=== PATIENT | female | born 1995 | race Two or more races ===

== ENCOUNTER 2020-10-31 08:00 | Outpatient (CLI) | payer OTHER ==
[2020-10-31 15:28] LABS: MUDS CUTOFF CONCENTRATIONS CUTOFF CONC BELOW:
[2020-10-31 16:10] LABS: BILIRUBIN,URINE NEGATIVE (NEGATIVE); GLUCOSE, URINE (UA) NEGATIVE (NEGATIVE); KETONES,URINE (UA) NEGATIVE (NEGATIVE); LEUKOCYTE ESTERASE, URINE TRACE (NEGATIVE); NITRITE,URINE NEGATIVE (NEGATIVE); OCCULT BLOOD,URINE TRACE-LYSE (NEGATIVE); PROTEIN,URINE NEGATIVE (NEGATIVE); UROBILINOGEN,URINE 0.2 (NORMAL) E.U./dL (NORMAL)
[2020-10-31 16:11] LABS: CLARITY,URINE HAZY (CLEAR)
[2020-10-31 16:19] LABS: BACTERIA,URINE Few /HPF (None Seen); RBC,URINE 0-5 /HPF (0-5); SQUAMOUS EPITHELIAL CELL,UR MANY Squamous (<= Few)
[2020-10-31 16:21] LABS: AMPHETAMINE SCREEN,URINE NEGATIVE (NEGATIVE); BARBITURATE SCREEN,UR NEGATIVE (NEGATIVE); BENZODIAZEPINES SCREEN, URINE NEGATIVE (NEGATIVE); COCAINE SCREEN URINE NEGATIVE (NEGATIVE); METHADONE SCREEN, URINE NEGATIVE (NEGATIVE); METHAMPHETAMINES SCREEN, URINE NEGATIVE (NEGATIVE); OPIATE SCREEN, URINE NEGATIVE (NEGATIVE); OXYCODONE SCREEN, URINE NEGATIVE (NEGATIVE); PROPOXYPHENE SCREEN, URINE NEGATIVE (NEGATIVE); THC CANNABINOID SCREEN, URINE NEGATIVE (NEGATIVE); TRICYCLIC ANTIDEPRESSANT,URINE NEGATIVE (NEGATIVE)
== END 2020-10-31 23:59 | disposition home or self-care (01) ==
LOC: LAB.WC 08:00
PROVIDERS: ATTEND Nurse Practitioner Obstetrics & Gynecology
DX: Z32.01 Encounter for pregnancy test, result positive (principal)
CPT/HCPCS: 80306; 81001; 87086

== ENCOUNTER 2020-11-15 15:48 | Outpatient (CLI) | payer OTHER ==
--- NOTE | 2020-11-15 22:16 | Ultrasound Report ---
PROCEDURE: OB First Trimester INDICATIONS: +PREG TEST OUTSIDE/PRIOR DATING DATA: Last menstrual period (LMP): 08/20/2020. LMP-based estimated date of delivery (DALE): 05/27/2021. First dating scan (date and location): 11/15/2020. Estimated date of delivery (DALE) from first dating scan: 05/25/2021. The below data below was generated using the ultrasound generated DALE of 05/25/2021 TECHNIQUE: Real-time scanning was performed of the fetus and maternal pelvic organs, with image documentation. COMPARISON: None. FINDINGS: Embryo: There is a gestational sac in the uterine fundus measuring 6 mm in mean sac diameter. Fetus within the gestational sac measures 6.4 cm in crown-rump length. Small subchorionic hemorrhage adjace nt to the gestational sac on the right measuring 2.7 cm in maximum dimension. Measurement variability in dating: +/- 4 weeks by LMP, +/- 7 days by mean sac diameter (use before 6 weeks gestation if crown-rump length not able to be measured), +/- 5 days by crown-rump length (6-12 weeks gestation). Maternal organs: Ovaries both normal in appearance. Right corpus luteum cyst measuring 1.8 cm.. IMPRESSION: Single live intrauterine gestation with average ultrasound age of 12 weeks 5 days. Small subchorionic hemorrhage on the right of the gestational sac measuring 2.7 cm. Reviewed by: Dragan Atkins MD on 11/15/2020 10:14 PM PDT Approved by: Dragan Atkins MD on 11/15/2020 10:14 PM PDT Station ID: [id number]
== END 2020-11-15 15:49 | disposition home or self-care (01) ==
LOC: DI 15:48
PROVIDERS: ATTEND Nurse Practitioner Obstetrics & Gynecology
DX: O20.8 Other hemorrhage in early pregnancy (principal); Z3A.12 12 weeks gestation of pregnancy

== ENCOUNTER 2020-11-22 08:00 | Outpatient (CLI) | payer OTHER ==
[2020-11-22 22:02] LABS: CHLAMYDIA TRACHOMATIS DNA NEGATIVE (NEGATIVE); NEISSERIA GONORRHOEAE DNA NEGATIVE (NEGATIVE); TRICHOMONAS VAGINALIS DNA NEGATIVE (NEGATIVE)
== END 2020-11-22 23:59 | disposition home or self-care (01) ==
LOC: LAB.WC 08:00
PROVIDERS: ATTEND Nurse Practitioner Obstetrics & Gynecology
DX: Z11.3 Encounter for screening for infections with a predominantly sexual mode of transmission (principal)
CPT/HCPCS: 87491; 87591; 87661

== ENCOUNTER 2020-11-22 12:09 | Outpatient (CLI) | payer OTHER ==
[2020-11-22 12:39] LABS: BASOPHILS % (AUTO) 0.3 %; EOSINOPHILS % (AUTO) 0.3 %; HCT - HEMATOCRIT 37.9 % (37.0-47.0); HGB - HEMOGLOBIN 12.2 g/dL (12.0-16.0); LYMPHOCYTES # (AUTO) 2.2 10^3/uL (1.5-3.5); LYMPHOCYTES % (AUTO) 21.7 %; MEAN CORPUSCULAR HGB CONC 32.2 g/dL (32.0-36.0); MEAN CORPUSCULAR VOLUME 86.9 fL (81.0-99.0); MEAN PLATELET VOLUME 9.1 fL (7.9-10.8); MONOCYTES # (AUTO) 0.8 10^3/uL (0.0-1.0); MONOCYTES % (AUTO) 7.5 %; NEUTROPHILS % (AUTO) 69.8 %; PLT - PLATELET COUNT 415 10^3/uL (130-450); RED BLOOD COUNT 4.36 10^6/uL (4.20-5.40)
[2020-11-23 12:56] LABS: HEPATITIS B SURFACE ANTIGEN NON-REACTIVE (NON-REACTIVE); HEPATITIS C ANTIBODY NON-REACTIVE (NON-REACTIVE)
[2020-11-23 14:02] LABS: HIV AG/AB 4TH GEN NON-REACTIVE (NON-REACTIVE)
== END 2020-11-22 12:10 | disposition home or self-care (01) ==
LOC: LAB 12:09
PROVIDERS: ATTEND Nurse Practitioner Obstetrics & Gynecology
DX: Z36.89 Encounter for other specified antenatal screening (principal); Z11.3 Encounter for screening for infections with a predominantly sexual mode of transmission
CPT/HCPCS: 36415; 85025; 86592; 86762; 86787; 86803; 86850; 86900; 86901; 87340; 87389; 87491; 87591; 87661

== ENCOUNTER 2021-01-08 14:35 | Outpatient (CLI) | payer OTHER ==
--- NOTE | 2021-01-08 17:28 | Ultrasound Report ---
PROCEDURE: OB Detailed Eval INDICATIONS: SUPERVISION OF NORMAL OUTSIDE/PRIOR DATING DATA: Last menstrual period (LMP): 08/20/2020. LMP-based estimated date of delivery (DALE): 05/27/2021. First dating scan (date and location): 11/15/2020. Estimated date of delivery (DALE) from first dating scan: 05/25/2021. The below data below was generated using the computer-generated DALE of 05/25/2021 TECHNIQUE: Real-time scanning was performed of the fetus, with image documentation and biometric measurements. COMPARISON: 11/15/2020. FINDINGS: General: A single living intrauterine gestation is present. Presentation: Breech Placenta: Placental position is fundal posterior, without previa. Amniotic fluid index: 13.4 cm, normal for gestational age. heart rate: 162 beats per minute. Maternal cervical canal: 4.8 cm long and is closed; normal length is 2.5 cm or more. biometrics: Biparietal diameter: 4.7 cm, 20 weeks, 1 day Head circumference: 17.8 cm, 20 weeks, 2 days Abdominal circumference: 14.8 cm, 20 weeks, 1 day Femur length: 3.08 cm, 19 weeks, 4 days Estimated gestational age from initial scan: 20 weeks, 3 days. Composite gestational age from present scan: 19 weeks, 4 days Estimated weight and percentile: 20.8 g, 20.2%. Measurement variability in biometric dating: +/- 10 days from 12-20 weeks gestation, +/- 2 weeks from 20-30 weeks gestation, +/- 3 weeks at 30 weeks gestation or later. Anatomic survey: Neuro: Ventricles are normal at less than 10 mm. Cisterna magna is normal at 3-11 mm. Cerebellum i s normal in size and morphology. Nuchal skin fold: Normal at less than 6 mm between 14 and 20 weeks gestational age. Face: Nose and lips, facial profile are moderately well seen due to position. Spine: No evidence for spina bifida. Heart: 4-chambered heart is present, with normal ventricular outflow tracts. Diaphragm: Diaphragm is intact. Stomach: Left-sided stomach is present. Kidneys: No hydronephrosis. Normal is less than 5 mm in 2nd trimester, less than 7 mm in 3rd trimester. Cord: 3 vessel cord has orthotopic insertion. Bladder: Normal in size. Extremities: All 4 extremities are visualized. IMPRESSION: 1. Single live intrauterine with fetus in breech presentation. No placenta previa. he art rate is 162 bpm. 2. Estimated weight is at 20.2 percentile. Normal amount of amniotic fluid with HARVINDER measures 13 .4 cm. Largest pocket is 4.5 cm. 3. Facial profile is not well visualized due to position. Rest of the anatomic survey is normal. Reviewed by: Bright Dick MD on 01/08/2021 5:27 PM PDT Approved by: Bright Dick MD on 01/08/2021 5:27 PM PDT Station ID: [id number]
== END 2021-01-08 14:36 | disposition home or self-care (01) ==
LOC: DI 14:35
PROVIDERS: ATTEND Nurse Practitioner Obstetrics & Gynecology
DX: O32.1XX0 Maternal care for breech presentation, not applicable or unspecified (principal); Z3A.20 20 weeks gestation of pregnancy; Z36.8A Encounter for antenatal screening for other genetic defects
CPT/HCPCS: 36415; 81511

== ENCOUNTER 2021-01-08 14:40 | Outpatient (CLI) | payer OTHER ==
[2021-01-09 14:40] LABS: AFP MOM 0.96; AGE RISK DOWN SYNDROME 1 IN 1056; CALC'D GESTATIONAL AGE 20.1 weeks; CIGARETTE SMOKER? NOT GIVEN; DONOR AGE: EGG RETRIEVAL NOT GIVEN; DONOR EGG NO; ESTRIOL MOM 1.09; HCG MOM 0.88; HX OF NEURAL TUBE DEFECTS NO; INHIBIN A MOM 0.78; INSULIN DEPEND DIABETIC NO; MATERNAL WEIGHT 152 lbs; MSS DOWN SYNDROME RISK <1 IN 5000; MSS3 TRISOMY 18 RISK <1 IN 5000; NUMBER OF FETUSES 1; PREV PREGNANCY DOWN SYND NO; RISK FOR ONTD 1 IN 3698
== END 2021-01-08 14:41 | disposition home or self-care (01) ==
LOC: LAB 14:40
PROVIDERS: ATTEND Nurse Practitioner Obstetrics & Gynecology
DX: Z36.8A Encounter for antenatal screening for other genetic defects (principal)
CPT/HCPCS: 36415; 81511

== ENCOUNTER 2021-01-17 15:20 | Outpatient (CLI) | payer OTHER ==
--- NOTE | 2021-01-18 09:16 | Ultrasound Report ---
PROCEDURE: OB F/U or Repeat INDICATIONS: SUPERVISION OF NORMAL OUTSIDE/PRIOR DATING DATA: Last menstrual period (LMP): 08/20/2020. LMP-based estimated date of delivery (DALE): 05/27/2021. First dating scan (date and location): 11/15/2020. Estimated date of delivery (DALE) from first dating scan: 05/25/2021. The below data below was generated using the ultrasound DALE of 05/25/2021 TECHNIQUE: Real-time scanning was performed of the fetus, with image documentation. COMPARISON: 12/19/2020, 06/17/2020 FINDINGS: General: A single live intrauterine gestation is present. Presentation: Cephalic Placenta: Placental position is fundal posterior, without previa. Amniotic fluid index: 15.5 cm, within normal limits for gestational age. heart rate: 143 beats per minute. Maternal cervical canal: 5 cm long; normal length is 2.5 cm or more. Other: The facial profile is within normal limits. IMPRESSION: No significant abnormality is seen, with a normal-appearing facial profile. Reviewed by: Hari Walls MD on 01/18/2021 8:14 AM [place] Approved by: Hari Walls MD on 01/18/2021 8:14 AM [place] Station ID: [id number]
== END 2021-01-17 15:21 | disposition home or self-care (01) ==
LOC: DI 15:20
PROVIDERS: ATTEND Nurse Practitioner Obstetrics & Gynecology
DX: Z34.00 Encounter for supervision of normal first pregnancy, unspecified trimester (principal); Z36.89 Encounter for other specified antenatal screening

== ENCOUNTER 2021-03-03 10:14 | Outpatient (CLI) | payer OTHER ==
[2021-03-03 12:03] LABS: HCT - HEMATOCRIT 33.9 % (37.0-47.0); HGB - HEMOGLOBIN 10.7 g/dL (12.0-16.0); MEAN CORPUSCULAR HEMOGLOBIN 28.4 pg (27.0-31.0); MEAN CORPUSCULAR HGB CONC 31.6 g/dL (32.0-36.0); MEAN CORPUSCULAR VOLUME 89.9 fL (81.0-99.0); MEAN PLATELET VOLUME 9.8 fL (7.9-10.8); RED BLOOD COUNT 3.77 10^6/uL (4.20-5.40); RED CELL DISTRIBUTION WIDTH 14.8 % (12.0-15.0)
== END 2021-03-03 23:59 | disposition home or self-care (01) ==
LOC: LAB.WCP 10:14
PROVIDERS: ATTEND Nurse Practitioner Obstetrics & Gynecology
DX: Z34.90 Encounter for supervision of normal pregnancy, unspecified, unspecified trimester (principal); Z36.89 Encounter for other specified antenatal screening
CPT/HCPCS: 36415; 82950; 85027

== ENCOUNTER 2021-04-16 10:23 | Outpatient (CLI) | payer OTHER ==
[2021-04-16 10:40] VITALS: BP 122/83
--- NOTE | 2021-04-16 11:01 | PROVIDER PROGRESS NOTE ---
Progress Note Patient is a 26year-old -0-0-1 at 34 weeks 1 day gestation presenting to triage for 4 days of feeling unwell. She had some blurred vision and headaches, took some Tylenol yesterday that helped her symptoms. Then this morning woke up had 1 episode of diarrhea, one episode of vomiting bile. She tried eating some cereal, but threw this up on the way to the hospital. No other sick family members. No fever or chills. She has good movement, no leaking, no vaginal bleeding. She has no scotoma. Denies right upper quadrant pain or unrelenting headaches. Her biggest concern is some back of the head discomfort and some lightheadedness, and this makes her feel somewhat detached from her head. Past medical history Denies pertinent history Past surgical history No prior surgeries Family history Mother: Hypertension Social history Denies tobacco, alcohol, drugs Physical exam Physical Temp Pulse Resp BP Pulse Ox 98.4 F 104 H 20 122/83 H 99 04/16/21 10:36 04/16/21 10:36 04/16/21 10:36 04/16/21 10:36 04/16/21 10:36 Constitutional: alert, no acute distress, well hydrated, well developed, well nourished, appropriate dress. Skin: normal turgor, normal color. Head: atraumatic, normocephalic. Cardiovascular: RRR. Respiratory: no respiratory distress. Abdomen: nondistended, nontender. Spine: normal mobility. Neurologic: normal, sensation intact, motor intact. Psych: affect and mood appropriate, normal interaction, good eye contact. FHT: 145 bpm baseline, moderate variability, accelerations present, no decelerations. Gwynn: Quiescent Assessment and plan 26-year-old -0-0-1 at 34 weeks 1 day gestation with likely gastroenteritis. 1. 34 weeks gestation -Reactive NST today. 2. Gastroenteritis -New onset GI symptoms, and this is likely self resolving. Most of her symptoms do seem related to this. Very unlikely to be preeclampsia given a normal blood pressure, lack of concerning symptoms. Can take loperamide if diarrhea becomes a problem. Will discharge with ondansetron for nausea and vomiting. Can likely go some time with only small meals. Discussed importance of remaining hydrated with small frequent sips. Tolerated two glasses of water in triage. Discharged in stable condition. 3. Headache -improved with acetaminophen
[2021-04-16 11:07] LABS: BASOPHILS % (AUTO) 0.3 %; EOSINOPHILS % (AUTO) 0.3 %; HCT - HEMATOCRIT 34.9 % (37.0-47.0); HGB - HEMOGLOBIN 11.3 g/dL (12.0-16.0); LYMPHOCYTES # (AUTO) 1.5 10^3/uL (1.5-3.5); LYMPHOCYTES % (AUTO) 16.7 %; MEAN CORPUSCULAR HEMOGLOBIN 29.1 pg (27.0-31.0); MEAN CORPUSCULAR HGB CONC 32.4 g/dL (32.0-36.0); MEAN CORPUSCULAR VOLUME 89.9 fL (81.0-99.0); MEAN PLATELET VOLUME 9.4 fL (7.9-10.8); MONOCYTES # (AUTO) 0.5 10^3/uL (0.0-1.0); MONOCYTES % (AUTO) 5.8 %; NEUTROPHILS # (AUTO) 6.7 10^3/uL (1.5-6.6); NEUTROPHILS % (AUTO) 76.4 %; PLT - PLATELET COUNT 350 10^3/uL (130-450); RED BLOOD COUNT 3.88 10^6/uL (4.20-5.40); RED CELL DISTRIBUTION WIDTH 14.6 % (12.0-15.0); WHITE BLOOD COUNT 8.8 x10^3/uL (4.8-10.8)
[2021-04-16 11:18] LABS: BILIRUBIN,URINE NEGATIVE (NEGATIVE); GLUCOSE, URINE (UA) NEGATIVE (NEGATIVE); KETONES,URINE (UA) NEGATIVE (NEGATIVE); LEUKOCYTE ESTERASE, URINE LARGE (NEGATIVE); NITRITE,URINE NEGATIVE (NEGATIVE); OCCULT BLOOD,URINE NEGATIVE (NEGATIVE); PH,URINE 7.5 PH (5.0-7.5); PROTEIN,URINE NEGATIVE (NEGATIVE); UROBILINOGEN,URINE 0.2 (NORMAL) E.U./dL (NORMAL)
[2021-04-16 11:22] LABS: CLARITY,URINE SL. CLOUDY (CLEAR)
[2021-04-16 11:30] LABS: BACTERIA,URINE Few /HPF (None Seen); RBC,URINE 0-5 /HPF (0-5); SQUAMOUS EPITHELIAL CELL,UR MANY Squamous (<= Few)
[2021-04-16] MEDS ORDERED: ONDANSETRON ODT 4 MG TABLET TL PRN (11:57)
[2021-04-16] MEDS ORDERED: ACETAMINOPHEN 500 MG TABLET PO ONE (12:00)
== END 2021-04-16 12:12 | disposition home or self-care (01) ==
LOC: WFO 10:23 → FBP 10:24 → WFO 12:12
PROVIDERS: ATTEND Obstetrics & Gynecology
DX: O98.813 Other maternal infectious and parasitic diseases complicating pregnancy, third trimester (principal); K52.9 Noninfective gastroenteritis and colitis, unspecified; O99.891 Other specified diseases and conditions complicating pregnancy; R51.9 Headache, unspecified; Z3A.34 34 weeks gestation of pregnancy
CPT/HCPCS: 36415; 81001; 85025; 99213; A9270; Q0162; 81003; 87086; 99214

== ENCOUNTER 2021-05-06 11:15 | Outpatient (CLI) | payer OTHER | END 2021-05-06 23:59 | disposition home or self-care (01) | LOC: LAB 11:15 | PROVIDERS: ATTEND Nurse Practitioner Obstetrics & Gynecology | DX: Z36.85 Encounter for antenatal screening for Streptococcus B (principal) | CPT/HCPCS: 87797 ==

== ENCOUNTER 2021-05-27 03:03 | Inpatient (IN) | payer OTHER ==
[2021-05-27] MEDS ORDERED: miSOPROStoL 200 MCG TABLET PR ONE (03:37)
[2021-05-27] MEDS ORDERED: CARBOPROST TROMETHAMINE 250 MCG/ML AMP IM PRN (03:37)
[2021-05-27] MEDS ORDERED: LIDOCAINE-MPF 1% 30 ML VIAL ID PRN (03:37)
[2021-05-27] MEDS ORDERED: LACTATED RINGERS 500 ML IV ONE (03:37)
[2021-05-27] MEDS ORDERED: TERBUTALINE 1 MG/ML VIAL SUBQ PRN (03:37)
[2021-05-27] MEDS ORDERED: fentaNYL 100 MCG/2 ML VIAL IVP PRN (03:37)
[2021-05-27] MEDS ORDERED: miSOPROStoL 200 MCG TABLET BC ONE (03:37)
[2021-05-27] MEDS ORDERED: OXYTOCIN/SODIUM CHLORIDE 500 ML IV PRN (03:37)
[2021-05-27] MEDS ORDERED: OXYTOCIN 10 UNIT/ML VIAL IM PRN (03:37)
[2021-05-27] MEDS ORDERED: TRANEXAMIC ACID IN NACL 1,000 MG/100 ML BAG IV PRN (03:37)
[2021-05-27] MEDS ORDERED: METHYLERGONOVINE 0.2 MG/ML VIAL IM PRN (03:37)
[2021-05-27] MEDS ORDERED: VANCOMYCIN INJ 1 GM in SODIUM CHLORIDE 0.9% 500 ML IV STA (04:03)
[2021-05-27] MEDS: LACTATED RINGERS 1,000 ML IV SCH (04:28)
--- NOTE | 2021-05-27 06:40 | HISTORY & PHYSICAL EXAMINATION ---
Admit History - Visit Reason Visit Reason: Contractions - : 2 Parity: 1 Care: positive: None ([facility] Irizarry)) Complications This : positive: Other (GBS+) Smoking Status: Never smoker - Other Maternal History Other Maternal History: The patient presents with complaints of contractions. She was found to be 5 cm on presentation. She has progressed to her labor has continued to progress without augmentation. Medical history none Past surgical history none Allergies penicillin Labs: AB+ Rubella immune RPR negative Hep B negative HIV negative 1 hour glucose 93 GBS positive Varicella immune PE: General- moderate distress Respiratory no respiratory distress Abdomen- soft, nontender, gravid Meds/Allgy - Home Medications Home Medications: Ambulatory Orders Medication Instructions Recorded Confirmed Ondansetron HCl [Zofran] 4 mg PO Q8HR PRN #20 tab 04/16/21 - Allergies Allergies/Adverse Reactions: Allergies Allergy/AdvReac Type Severity Reaction Status Date / Time penicillin V Allergy Severe Hives Verified 04/16/21 11:21 Physical - Abdominal Exam Vital Signs: Temp Pulse Resp BP Pulse Ox 99.1 F 98 20 121/77 100 05/27/21 05:17 05/27/21 05:17 05/27/21 05:17 05/27/21 05:17 05/27/21 03:22 Contraction Frequency (min/apart): 2 - Monitoring Heart Rate Baseline: 140 Strip Review: positive: Category II - Presentation Presentation: positive: Vertex - Vaginal Exam Membranes: positive: Membranes intact Dilation (in cm): 8 cm on exam by RN Plan for Labor - Plan For Labor Plan for Labor: 26-year-old G2, P1 at 40 weeks 0 days who presents in active labor # Active labor-patient was 5 cm on presentation and has progressed to 8 cm with regular painful contractions. tracing with intermittent variable decelerations. Patient declines rupture of membranes and FSE placement at this time. Will reposition and resuscitate. Anticipate vaginal delivery soon. #GBS positivepenicillin allergic with anaphylactic reaction , clindamycin susceptibility not available in records, vancomycin ordered.
[2021-05-27] MEDS ORDERED: HYDROCORTISONE 1% CREAM 28 GM TUBE PR PRN (07:55)
[2021-05-27] MEDS ORDERED: ONDANSETRON 4 MG/2 ML VIAL IVP PRN (07:55)
[2021-05-27] MEDS ORDERED: WITCH HAZEL/GLYCERIN 1 PAD TOP PRN (07:55)
--- NOTE | 2021-05-27 08:04 | DELIVERY NOTE ---
Delivery Note - Labor Labor: positive: Spontaneous - Infant Delivery Method Infant Delivery Method: positive: Spontaneous vaginal delivery - Presentation Presentation: positive: Vertex, ABELINO - left occiput anterior - Nuchal Cord Nuchal Cord: positive: Present - Anesthetic Anesthetic: positive: Lidocaine - 1% plain Volume: positive: Other (10 cc) - Amniotic Fluid Description Amniotic Fluid Description: positive: Clear - Episiotomy Type Episiotomy Type: positive: None - Laceration Laceration: positive: 2nd degree, Perineal - Suture Suture Type: positive: Chromic Suture Size: positive: 2-0 - Delivery Outcome Delivery Outcome: positive: Livebirth - [place]ushing: positive: Placed in direct skin contact with mother, Suctioned, Bulb syringe, Stimulated Cushing sex: positive: Female - Placenta Placenta: positive: Intact, Spontaneous - Estimated Blood Loss Estimated Blood Loss (in cc): 200 - Post Delivery Events Post Delivery Events: positive: No post delivery events - Delivery Comments (Free Text/Narrative) Delivery Comments (Free Text/Narrative): Following active spontaneous labor, the patient progressed to complete cervical dilation. She was placed in dorsal lithotomy position. The head delivered with maternal pushing and ABELINO position. The anterior shoulder delivered without difficulty followed subsequently by the posterior shoulder and the remainder of the baby. A nuchal cord was noted however the baby delivered rapidly therefore the cord was reduced following delivery. The oropharynx was suctioned. The baby was vigorous at delivery. Cord clamping was delayed for 1 minute. The cord was doubly clamped and cut by the father of the baby. A cord segment was obtained for cord gases. Cord blood was obtained. The placenta was delivered with fundal massage. The fundus was noted to be firm. Evaluation of the perineum revealed a second-degree midline perineal laceration. This was repaired using chromic suture in a continuous locking fashion. Hemostasis was noted. The patient remained in stable condition. -Delivery time 0706 -estimated blood loss- 200 cc -placenta time 0713 Apgars 8/ 9
[2021-05-27] MEDS: IBUPROFEN 800 MG TABLET PO SCH ×2 (11:21→17:45)
[2021-05-27] MEDS: ACETAMINOPHEN 325 MG TABLET PO PRN ×2 (11:21→17:45)
[2021-05-27] MEDS: DOCUSATE SODIUM 100 MG CAPSULE PO SCH (23:20)
[2021-05-28] MEDS: IBUPROFEN 800 MG TABLET PO SCH ×5 (05:23→23:40)
[2021-05-28 07:42] LABS: BASOPHILS # (AUTO) 0.1 10^3/uL (0.0-0.1); BASOPHILS % (AUTO) 0.3 %; EOSINOPHILS % (AUTO) 0.3 %; HCT - HEMATOCRIT 31.3 % (37.0-47.0); HGB - HEMOGLOBIN 10.4 g/dL (12.0-16.0); LYMPHOCYTES # (AUTO) 2.4 10^3/uL (1.5-3.5); LYMPHOCYTES % (AUTO) 16.4 %; MEAN CORPUSCULAR HEMOGLOBIN 29.6 pg (27.0-31.0); MEAN CORPUSCULAR HGB CONC 33.2 g/dL (32.0-36.0); MEAN CORPUSCULAR VOLUME 89.2 fL (81.0-99.0); MEAN PLATELET VOLUME 9.9 fL (7.9-10.8); MONOCYTES % (AUTO) 6.6 %; NEUTROPHILS # (AUTO) 11.3 10^3/uL (1.5-6.6); NEUTROPHILS % (AUTO) 75.9 %; PLT - PLATELET COUNT 265 10^3/uL (130-450); RED BLOOD COUNT 3.51 10^6/uL (4.20-5.40); RED CELL DISTRIBUTION WIDTH 14.3 % (12.0-15.0); WHITE BLOOD COUNT 14.9 x10^3/uL (4.8-10.8)
[2021-05-28] MEDS ORDERED: DOCUSATE SODIUM 100 MG CAPSULE PO SCH (09:00)
--- NOTE | 2021-05-28 09:59 | PROVIDER PROGRESS NOTE ---
Subjective - Subjective Subjective: S: Bonding well with her baby. without difficulty. Bleeding decreased and is light. Pain well controlled with oral medications. She is disappointed that she needs to stay for another 24 hours secondary to inadequate GBS treatment. O: Heart RRR w/o M/G/R, lungs CTAB, abdomen soft and nontender with fundus firm at U, perineum intact, light lochia rubra, bilateral LE's trace edema. A: 26yo -->P2 PPD#1 s/p TSVD viable female 2nd degree perineal laceration -intact Normal recovery P: Continue routine pp care and medications. Anticipate discharge home tomorrow. Objective - Vital Signs/Intake & Output Intake & Output: Intake & Output 05/25/21 05/26/21 05/27/21 05/28/21 23:59 23:59 23:59 23:59 Intake Total 500 Output Total 900 Balance -400 - Lab Results Fish Bones: 05/28/21 07:21 Other Labs: Lab Results x24hrs 05/28/21 05/27/21 Range/Units 07:21 13:11 WBC 14.9 H (4.8-10.8) x10^3/uL RBC 3.51 L (4.20-5.40) 10^6/uL Hgb 10.4 L (12.0-16.0) g/dL Hct 31.3 L (37.0-47.0) % MCV 89.2 (81.0-99.0) fL MCH 29.6 (27.0-31.0) pg MCHC 33.2 (32.0-36.0) g/dL RDW 14.3 (12.0-15.0) % Plt Count 265 (130-450) 10^3/uL MPV 9.9 (7.9-10.8) fL Neut # (Auto) 11.3 H (1.5-6.6) 10^3/uL Lymph # (Auto) 2.4 (1.5-3.5) 10^3/uL [place] # (Auto) 1.0 (0.0-1.0) 10^3/uL Eos # (Auto) 0.0 (0.0-0.7) 10^3/uL Baso # (Auto) 0.1 (0.0-0.1) 10^3/uL Absolute Nucleated RBC 0.00 x10^3/uL Nucleated RBC % 0.0 /100WBC Blood Type AB POSITIVE Antibody Screen NEGATIVE
[2021-05-28] MEDS: DOCUSATE SODIUM 100 MG CAPSULE PO SCH ×2 (12:02→23:39)
[2021-05-28] MEDS: LACTATED RINGERS 1,000 ML IV SCH ×8 (17:59→18:02)
[2021-05-28] MEDS: SODIUM CHLORIDE FLUSH 0.9% 10 ML SYRINGE IVP SCH ×4 (17:59→18:02)
[2021-05-29] MEDS: SODIUM CHLORIDE FLUSH 0.9% 10 ML SYRINGE IVP SCH (00:56)
[2021-05-29] MEDS: LACTATED RINGERS 1,000 ML IV SCH ×2 (00:56→00:57)
[2021-05-29] MEDS: IBUPROFEN 800 MG TABLET PO SCH (05:36)
[2021-05-29] MEDS: ACETAMINOPHEN 325 MG TABLET PO PRN (08:46)
[2021-05-29 08:52] VITALS: BP 127/66
--- NOTE | 2021-05-29 09:40 | Discharge Plan ---
Discharge Plan Problem Reviewed?: Yes Disposition: Home, Self Care Condition: Good Diet: Regular Activity Restrictions: No Restrictions Shower Restrictions: No Driving Restrictions: No Weight Bearing: Full Weight No Smoking: If you smoke, Please STOP! Call for help. Follow-up with: Rebeca Hernandez CNM, ARNP [Provider Admit Priv/Credential] -
--- NOTE | 2021-05-29 09:50 | DISCHARGE SUMMARY ---
Discharge Summary Condition at Discharge: Good Discharge Disposition: 01 Home, Self Care - HOSPITAL COURSE Hospital Course: Date of Admission: 05/27/2021 Date of Discharge: 05/29/2021 Diagnosis on Admission: 1. 26yo @ 40.0wks gestation 2. Active labor 3. GBS POSITIVE Diagnosis on Discharge: 1. 26yo PPD#2 s/p TSVD viable female 2. 3. Normal recovery Brief History: She is a patient of [facility] who presented on 05/27/2021 in active labor. Cervix was 5cm dilated and she progressed to spontaneously deliver a viable female on 05/27/2021 @ 0706. Apgars were 8/9 at 1 and 5 minutes respectively. 2nd degree perineal laceration. EBL 200mL. She was GBS positive and received 1 dose of Vancomycin secondary to penicillin allergy. She has been doing well in her course. She is ambulating and tolerating a regular diet. She is urinating without difficulty and her lochia is normal. Her pain is well controlled with oral medications. She is bonding well with her baby and without difficulty. She will be discharged home today on day #2 with instructions to continue taking her vitamin while and to continue taking ibuprofen and tylenol over the counter as needed for pain management. She is also experiencing worsening hemorrhoids following delivery and we reviewed appropriate care and she has been encouraged to continue taking over the counter stool softener such as docusate sodium to titrate stool to toothpaste consistency. She intends to follow up with myself at [facility] in 1 week or sooner if needed. She has been given precautions to call if she has any worsening fevers, chills, abdominal pain, increased vaginal bleeding, or foul smelling vaginal lochia. She verbalized understanding and agrees to above plan. She denies further questions or concerns at this time. Physical Exam: Normocephalic, atraumatic, heart RRR w/o M/G/R, lungs CTAB, abdomen soft and nontender with fundus firm at U-2, perineum intact, light lochia rubra, b ilateral LE's trace edema. - ALLERGIES Allergies/Adverse Reactions: Allergies Allergy/AdvReac Type Severity Reaction Status Date / Time penicillin V Allergy Severe Hives Verified 04/16/21 11:21 - MEDICATIONS Home Medications: Ambulatory Orders Medication Instructions Recorded Confirmed Ondansetron HCl [Zofran] 4 mg PO Q8HR PRN #20 tab 04/16/21 - LABS Result Diagrams: 05/28/21 07:21
--- NOTE | 2021-05-29 12:16 | Labor Flowsheet ---
Labor Flowsheet Datetime Report Generated by CPN: 05/29/2021 12:16 Datetime: 05/27/2021 09:03 VITAL SIGNS NBP Sys/Zaria/Mean (mmHg): 131 : 69 : 82 Pulse: 85 LaborFlag: Labor Datetime: 05/27/2021 07:10 Membranes Ruptured Date/Time: 05/27/2021 06:59 Amniotic Fluid Color: Clear Amniotic Fluid Odor: Normal Datetime: 05/27/2021 07:05 STAGE 2 Pushing: Coached on Pushing Pushing Position: Pushing with Contractions Datetime: 05/27/2021 06:59 Membrane Status: Ruptured Membranes Rupture Method: Spontaneous Amniotic Fluid Amount: Small Datetime: 05/27/2021 06:55 UTERINE ACTIVITY Monitor Mode: External Frequency (min): 2-3 Quality: Strong Resting Tone (Palpate): Relaxed ASSESSMENT A Monitor Mode: External US FHR Baseline Rate : 140 Variability: Moderate 6-25 bpm Accelerations: 15X15 Category: Category I VAGINAL EXAM Dilatation (cm): 9.0 Effacement (%): 100 Station: -1 Exam by: JAYESH hargrove Vaginal Bleeding: Normal Show Cervix, Consistency: Soft Cervix, Position: Anterior Vaginal Exam Comments: feels "urge for BM", involuntarily pushes sometimes Datetime: 05/27/2021 06:52 Monitor Interventions for UA: [place] Adjusted Datetime: 05/27/2021 06:50 Temperature (C): 36.8 Datetime: 05/27/2021 06:48 Comments: drops out to mhr of [id number] Patient Care Comments: sitting in "labor chair position in bed Datetime: 05/27/2021 06:45 SpO2 (%): 97 Datetime: 05/27/2021 06:27 FHR Baseline Changes: No Baseline Change PAIN Pain Scale: 8 Pain Presence: Intermittent Pain Type: Contraction Pain Location: Abdomen; Back Pain Coping: Breathing Through Contractions Pain Assessment Comments: doesn't want epidural, doesn't like nitrous Comfort Measures: Breathing/Relaxation; Back Rub Given; Family Support Datetime: 05/27/2021 06:07 Provider Reviewed Strip: Yes COMMUNICATION Communication: Provider at Bedside Provider Notified (Name): Dr. Am[place]ula Notification Reason: Status Update Datetime: 05/27/2021 06:01 Decelerations: None Pain Relief Measures: Comfort Measures Datetime: 05/27/2021 05:26 MATERNAL ASSESSMENT Level of Consciousness: Alert Headache: Denies Nausea/Vomiting: Denies RUQ Epigastric Pain: Denies Datetime: 05/27/2021 04:33 Monitor Interventions for FHR: Ultrasound Adjusted PATIENT CARE IV/Blood Work: IV Infusing per Order; IV Bag Number @ 1 Datetime: 05/27/2021 04:32 MEDICATIONS Antibiotics: Other Antibiotic @ vancomycin 1gm
== END 2021-05-29 11:50 | disposition home or self-care (01) | DRG 807 ==
LOC: WFO 03:03 → FBP 03:09 → WFO 03:36 → FBP 03:37
PROVIDERS: ADMIT Obstetrics & Gynecology; ATTEND Obstetrics & Gynecology
PROC: 0KQM0ZZ Repair Perineum Muscle, Open Approach (ICD-10-PCS; principal; 2021-05-27)
PROC: 10E0XZZ Delivery of Products of Conception, External Approach (ICD-10-PCS; 2021-05-27)
DX: O70.1 Second degree perineal laceration during delivery (principal); Z37.0 Single live birth; O99.824 Streptococcus B carrier state complicating childbirth; Z3A.40 40 weeks gestation of pregnancy; Z88.0 Allergy status to penicillin
CPT/HCPCS: 36415; 85025; 86850; 86900; 86901; A9270; J3370; J7120; 59025

== ENCOUNTER 2021-06-21 03:06 | Emergency (ER) | payer OTHER ==
--- NOTE | 2021-06-21 03:32 | ED Physician Documentation ---
PD HPI ABD PAIN - Stated complaint Stated Complaint: UPPER ABD/CHEST PX - Chief complaint Chief Complaint: Abd Pain - History obtained from History obtained from: Patient - History of Present Illness Timing - onset: Enter time (23:30) Timing - details: Abrupt onset Pain level max: 7 Pain level now: 4 Quality: Pain Location: RUQ, Epigastric Radiation: Chest Improved by: Other (nothing) Worsened by: Other (no exacerbating factors) Associated symptoms: No: Fever, Nausea, Vomiting, Diarrhea, Constipation Similar symptoms before: Has not had sx before - Additional information Additional information: c/o sudden onset epigastric and RUQ pain tonight while in bed at home awake, getting ready to go to sleep. Has not had this pain before. She recently had at 40 weeks gestation Review of Systems Constitutional: reports: Reviewed and negative Cardiac: reports: Chest pain / pressure. denies: Palpitations, Pedal edema, Calf pain Respiratory: reports: Reviewed and negative GI: reports: Abdominal Pain. denies: Abdominal Swelling, Nausea, Vomiting, Constipation, Diarrhea PD PAST MEDICAL HISTORY - Past Medical History Past Medical History: No - Past Surgical History Past Surgical History: No - Present Medications Home Medications: Ambulatory Orders Medication Instructions Recorded Confirmed Ondansetron HCl [Zofran] 4 mg PO Q8HR PRN #20 tab 04/16/21 HYDROcod/ACETAM 5/325 [Agency 5/325] 1 - 2 tablet PO Q6H PRN #14 tablet 06/21/21 - Allergies Allergies/Adverse Reactions: Allergies Allergy/AdvReac Type Severity Reaction Status Date / Time penicillin V Allergy Severe Hives Verified 04/16/21 11:21 - Social History Smoking Status: Never smoker PD ED PE NORMAL - Vitals Vital signs reviewed: Yes - General General: Alert and oriented X 3, No acute distress, Well developed/nourished - Cardiac Cardiac: RRR, No murmur - Respiratory Respiratory: No respiratory distress, Clear bilaterally - Abdomen Abdomen: Soft, Non distended, Other (mild TTP epigastrium without rebound or guarding) - Back Back: No CVA TTP Results - Vitals Vitals: Oxygen O2 Source Room air - Labs Labs: Laboratory Tests 06/21/21 06/21/21 03:16 03:16 WBC 8.1 RBC 4.52 Hgb 13.0 Hct 40.1 MCV 88.7 MCH 28.8 MCHC 32.4 RDW 13.5 Plt Count 502 H MPV 9.1 Neut # (Auto) 3.7 Lymph # (Auto) 3.6 H [place] # (Auto) 0.6 Eos # (Auto) 0.2 Baso # (Auto) 0.0 Absolute Nucleated RBC 0.00 Nucleated RBC % 0.0 Sodium 138 Potassium 3.8 Chloride 104 Carbon Dioxide 24 Anion Gap 10.0 BUN 15 Creatinine 0.6 Estimated GFR (MDRD) 122 Glucose 100 Calcium 9.3 Total Bilirubin 0.5 AST 20 ALT 15 Alkaline Phosphatase 94 Total Protein 7.6 Albumin 4.1 Globulin 3.5 Albumin/Globulin Ratio 1.2 Lipase 32 - Rads (name of study) RUQ US Radiology: Prelim report reviewed, See rad report PD MEDICAL DECISION MAKING - ED course Complexity details: reviewed results, re-evaluated patient, considered differential, d/w patient ED course: H+P suggests biliary colic, gallstones seen on US. reassuring/unremarkable blood tests and patient declines pain medication during ED stay. She is provided vicodin take-home with rx for same. Results and diagnosis discussed with patient as well as return precautions and instructed to follow up with general surgery I am prescribing a short course of short-acting opioid pain medication for this patient. I have reviewed the patients SCAFFOLDER and no concerning findings were noted. I have discussed that the opioids are for short term therapy only, and will not be refilled from the ED Departure - Departure Disposition: 01 Home, Self Care Clinical Impression: Biliary colic Condition: Good Instructions: ED Gallstone W Biliary Colic Follow-Up: Bashir Bryant MD [Provider Admit Priv/Credential] - Prescriptions: HYDROcod/ACETAM 5/325 [Agency 5/325] 1 - 2 tablet PO Q6H PRN #14 tablet PRN Reason: Pain Comments: Your ultrasound shows multiple gallstones which is what is causing your upper abdominal pain. Follow up with a general surgeon; you will need a referral and might need to see your primary care provider to obtain the referral. You can contact your insurance provider to ask about the process of obtaining a referral, or else call your primary care provider's office when they are next o pen to ask about the referral process. A prescription for hydrocodone with acetaminophen has been electronically submitted to the [facility] pharmacy in [place]. If you are you should try to have milk pumped for feedings before taking doses of this medication. If you are after taking doses of this medication, try to limit the amount taken to no more than six tablets in any 24-hour period. The medication is excreted into breast milk, but minimizing the doses (one tablet at a time instead of two and spacing the doses out every 6 hours) will also minimize the amount in the breast milk and this will minimize any risk to the baby. I am prescribing a short course of narcotic pain medication for you. These are potentially dangerous and addictive medications that should be used carefully. These medications may constipate you. Take an [id number] stool softener (docusate) twice daily with plenty of water while taking these medications. If you go 24 hours without a bowel movement, take [id number] miralax, per package instructions. Do not drink or drive while taking these medications. If you received narcotic or sedating medications while in the emergency department, do not drive for 24 hours. Store this medication in a safe, secure place and out of reach of children. It is a violation of federal law to give or sell this medication to another person or to use in a manner other than prescribed. The ED will not refill narcotic prescriptions, including prescriptions lost or stolen. To dispose of unwanted medications: 1. [facility] at [address] [facility] in [place] has a medication drop box. They accept prescription medications (in pill form) Wednesday through Wednesday 9:00 a.m. to 5:00 p.m. 2. The [facility] [place] [employer] accepts prescription medications (in pill form only) for disposal year round. Call for more information. 3. Contact the [facility] for the next [facility] sponsored prescription drug collection event. , [phone], or [phone]; Discharge Date/Time: 06/21/21 06:09
[2021-06-21 03:57] LABS: BASOPHILS % (AUTO) 0.5 %; EOSINOPHILS # (AUTO) 0.2 10^3/uL (0.0-0.7); EOSINOPHILS % (AUTO) 2.3 %; HCT - HEMATOCRIT 40.1 % (37.0-47.0); LYMPHOCYTES # (AUTO) 3.6 10^3/uL (1.5-3.5); MEAN CORPUSCULAR HEMOGLOBIN 28.8 pg (27.0-31.0); MEAN CORPUSCULAR HGB CONC 32.4 g/dL (32.0-36.0); MEAN CORPUSCULAR VOLUME 88.7 fL (81.0-99.0); MEAN PLATELET VOLUME 9.1 fL (7.9-10.8); MONOCYTES # (AUTO) 0.6 10^3/uL (0.0-1.0); NEUTROPHILS # (AUTO) 3.7 10^3/uL (1.5-6.6); NEUTROPHILS % (AUTO) 46.1 %; PLT - PLATELET COUNT 502 10^3/uL (130-450); RED BLOOD COUNT 4.52 10^6/uL (4.20-5.40); RED CELL DISTRIBUTION WIDTH 13.5 % (12.0-15.0); WHITE BLOOD COUNT 8.1 x10^3/uL (4.8-10.8)
[2021-06-21 04:06] LABS: ALBUMIN 4.1 g/dL (3.2-5.5); ALBUMIN/GLOBULIN RATIO 1.2 (1.0-2.2); BILIRUBIN,TOTAL 0.5 mg/dL (0.2-1.0); CALCIUM 9.3 mg/dL (8.5-10.3); CREATININE 0.6 mg/dL (0.4-1.0); POTASSIUM 3.8 mmol/L (3.5-5.0); TOTAL PROTEIN 7.6 g/dL (6.7-8.2)
[2021-06-21 05:34] VITALS: BP 95/75
[2021-06-21] MEDS ORDERED: HYDROcod/ACET 5/325 Prepack 4 PO STA (05:51)
--- NOTE | 2021-06-21 07:54 | Ultrasound Report ---
PROCEDURE: Abdomen Limited INDICATIONS: epigastric pain TECHNIQUE: Real-time focused scanning was performed of the abdomen, with image documentation. COMPARISON: None FINDINGS: The liver measures 16.3 cm in length. There is slight increased echogenicity. No evidence of focal ma ss or intrahepatic ductal dilation. The gallbladder demonstrates normal wall thickness of 2 mm without pericholecystic fluid. Negative Mu rphy's sign reported by the technologist. There are multiple gallstones, a few of which appear nonmob ile within the gallbladder neck. The common bile duct measures 4.8 mm. Imaged portions of the proximal pancreas are unremarkable in appearance. The right kidney is normal in size and echogenicity. There is slight pelvocaliectasis. IMPRESSION: Cholelithiasis with nonmobile gallstones within the neck. No other findings to suggest acute cholecys titis. Mild right pelvocaliectasis. Slight increased echogenicity of the liver most currently seen with hepatic steatosis. Agree with preliminary report. Reviewed by: Ángel Nagy DO on 06/21/2021 6:52 AM KIM Approved by: Ángel Nagy DO on 06/21/2021 6:52 AM KIM Station ID: [id number]
== END 2021-06-21 06:09 | disposition home or self-care (01) ==
LOC: ED 03:06
DX: K80.50 Calculus of bile duct without cholangitis or cholecystitis without obstruction (principal)
CPT/HCPCS: 36415; 80053; 83690; 85025; 93005; 99284